=== PATIENT | female | born 1930 | race Caucasian/White ===

== ENCOUNTER 2016-09-13 10:14 | Emergency (ER) | payer OTHER ==
[~2016-09-13] VITALS: Ht 157.5 cm; Wt 81.0 kg
[~2016-09-13 10:14] MED LIST: CALC600T34 PO; LOSA25TA31 PO; METO25CR PO; MEVA40TA6 PO; OMEP20TA39 PO; RANI150UDC PO; WARF2TAB PO
[2016-09-13 10:28] VITALS: BP 138/59; PULSE 65; RESP 16; TEMP 97.6; O2SAT 93
[2016-09-13 10:54] LABS: BLOOD, URINE NEG (NEG); GLUCOSE,URINE NEG (NEG); KETONE, URINE NEG (NEG); NITRITE,URINE NEG (NEG)
--- NOTE | 2016-09-13 10:57 | PD ---
HPI Chief Complaint: Flank/Kidney Pain Time Seen by Provider: 10:33 Travel History International Travel<30 days: No Contact w/Intl Traveler<30days: No Traveled to known affect area: No History of Present Illness HPI This 86-year-old female is complaining of some right lumbar pain. Last night she was complaining of some right lower quadrant pain. She did not have vomiting or diarrhea. Today the pain seems greater in the lumbar area he has not had dysuria. She is not aware of any fever or chills. She does not know history of injury she has had an appendectomy in the past. She has a history of COPD. She also has a history of renal insufficiency and sees a microelectronics technician every 6 months. PFSH Past Medical History Arthritis: Yes (LEFT ANKLE) Autoimmune Disease: No Heart Rhythm Problems: No Cancer: No Cardiovascular Problems: Yes High Cholesterol: Yes Diabetes: No Diminished Hearing: No Endocrine: No GERD: Yes (controlled with medication) Genitourinary: No Hypertension: Yes Immune Disorder: No Implanted Vascular Access Dvce: No Neurologic: No Psychiatric: No Reproductive: No Respiratory: Yes Thyroid Disease: No ?: Not Past Surgical History Abdominal Surgery: Yes (APPENDECTOMY IN 1973) Social History Alcohol Use: No Tobacco Use: No Substance Use: No Allergies-Medications (Allergen,Severity, Reaction): Coded Allergies: Penicillin (Verified Allergy, Severe, 09/13/16) Reported Meds & Prescriptions Reported Meds & Active Scripts Active Reported Gabapentin 300 Mg Cap 300 Mg PO TID Losartan (Losartan Potassium) 50 Mg Tab 50 Mg PO DAILY Atorvastatin (Atorvastatin Calcium) 40 Mg Tab 40 Mg PO HS Calcitriol 0.25 Mcg Cap 0.75 Mcg PO DAILY Hydralazine (Hydralazine HCl) 25 Mg Tab 25 Mg PO TID Take with a meal Metoprolol Tartrate 50 Mg Tab 50 Mg PO DAILY Warfarin 2 Mg Tab 2 Mg PO DAILY Review of Systems General / Constitutional: No: Fever, Chills Eyes: No: Diploplia, Blurred Vision HENT: No: Headaches, Vertigo Cardiovascular: No: Palpitations Respiratory: No: Cough, Shortness of Breath Gastrointestinal: Positive: Abdominal Pain, No: Nausea, Vomiting Genitourinary: No: Frequency, Dysuria Musculoskeletal: No: Myalgias, Arthralgias Skin: No Rash Neurologic: No: Weakness Hematologic/Lymphatic: No: Easy Bruising Physical Exam Narrative GENERAL: Well-developed female SKIN: Warm and dry. HEAD: Atraumatic. Normocephalic. EYES: Pupils equal and round. No scleral icterus. No injection or drainage. ENT: No nasal bleeding or discharge. Mucous membranes pink and moist. NECK: Trachea midline. No JVD. CARDIOVASCULAR: Regular rate and rhythm. No murmur appreciated. RESPIRATORY: No accessory muscle use. Clear to auscultation. Breath sounds equal bilaterally. GASTROINTESTINAL: Abdomen soft, she does have some right lower quadrant tenderness, nondistended. Hepatic and splenic margins not palpable. MUSCULOSKELETAL: No obvious deformities. No clubbing. No cyanosis. No edema. NEUROLOGICAL: Awake and alert. No obvious cranial nerve deficits. Motor grossly within normal limits. Normal speech. PSYCHIATRIC: Appropriate mood and affect; insight and judgment normal. Data Data Last Documented VS Vital Signs Date Time Temp Pulse Resp B/P Pulse Ox O2 Delivery O2 Flow Rate FiO2 09/13/16 10:28 97.6 65 16 138/59 93 Orders Urinalysis - C+S If Indicated (09/13/16 10:36) Complete Blood Count With Diff (09/13/16 10:55) Comprehensive Metabolic Panel (09/13/16 10:55) Urine Culture (09/13/16 10:30) Ct Abd/Pel W/O Iv Contrast (09/13/16 11:51) Labs Laboratory Tests Test 09/13/16 09/13/16 10:30 11:15 Urine Collection Type CLEAN CATCH Urine Color YELLOW Urine Turbidity CLEAR Urine pH 5.0 Urine Specific [place] 1.022 Urine Protein NEG mg/dL Urine Glucose (UA) NEG mg/dL Urine Ketones NEG mg/dL Urine Occult Blood NEG Urine Nitrite NEG Urine Bilirubin NEG Urine Leukocyte Esterase NEG Urine WBC 0-2 /hpf Urine Squamous Epithelial > 8 /hpf Cells Urine Bacteria MOD /hpf Microscopic Urinalysis Comment CULTURE INDICATED Urine Collection Time 10:30 White Blood Count 8.1 TH/MM3 Red Blood Count 4.48 MIL/MM3 Hemoglobin 13.6 GM/DL Hematocrit 41.1 % Mean Corpuscular Volume 91.7 FL Mean Corpuscular Hemoglobin 30.2 PG Mean Corpuscular Hemoglobin 33.0 % Concent Red Cell Distribution Width 14.6 % Platelet Count 257 TH/MM3 Mean Platelet Volume 7.2 FL Neutrophils (%) (Auto) 81.9 % Lymphocytes (%) (Auto) 14.2 % Monocytes (%) (Auto) 2.4 % Eosinophils (%) (Auto) 0.9 % Basophils (%) (Auto) 0.6 % Neutrophils # (Auto) 6.7 TH/MM3 Lymphocytes # (Auto) 1.1 TH/MM3 Monocytes # (Auto) 0.2 TH/MM3 Eosinophils # (Auto) 0.1 TH/MM3 Basophils # (Auto) 0.0 TH/MM3 CBC Comment DIFF FINAL Differential Comment Sodium Level 146 MEQ/L Potassium Level 4.0 MEQ/L Chloride Level 110 MEQ/L Carbon Dioxide Level 26.1 MEQ/L Anion Gap 10 MEQ/L Blood Urea Nitrogen 31 MG/DL Creatinine 1.70 MG/DL Estimat Glomerular Filtration 29 ML/MIN Rate Random Glucose 113 MG/DL Calcium Level 9.3 MG/DL Total Bilirubin 0.5 MG/DL Aspartate Amino Transf 18 U/L (AST/SGOT) Alanine Aminotransferase 28 U/L (ALT/SGPT) Alkaline Phosphatase 67 U/L Total Protein 6.8 GM/DL Albumin 3.3 GM/DL [facility] Medical Decision Making Medical Screen Exam Complete: Yes Emergency Medical Condition: Yes Medical Record Reviewed: Yes Differential Diagnosis Differential includes UTI, renal colic, diverticulitis, musculoskeletal pain Narrative Course Her creatinine is come back at 1.7 and she does see a microelectronics technician for renal insufficiency so I ordered a CT scan without contrast to assess for possible intra-abdominal etiology of the pain. Her white count is normal. Urine shows some bacteria but no white cells Houston Trejo MD Sep 13, 2016 10:57
[2016-09-13 11:00] LABS: METHOD OF COLLECTION CLEAN CATCH; URINE COLOR YELLOW (YELLW/STRAW); WBC, URINE 0-2 /hpf (0-5)
[2016-09-13 11:01] LABS: BACTERIA, URINE MOD /hpf; COMMENT (UR) CULTURE INDICATED; CULTURE IF INDICATED CULTURE INDICATED; SQUAMOUS EPITHELIAL CELL URINE > 8 /hpf (0-5)
[2016-09-13] MEDS ORDERED: HYDR25TA35 PO (11:02)
[2016-09-13] MEDS ORDERED: GABA300C5 PO (11:02)
[2016-09-13] MEDS ORDERED: ATOR40TA16 PO (11:02)
[2016-09-13] MEDS ORDERED: LOSA50TA PO (11:02)
[2016-09-13] MEDS ORDERED: CALC0.25 PO (11:02)
[2016-09-13] MEDS ORDERED: WARF4TAB51 PO (11:02)
[2016-09-13] MEDS ORDERED: METO50TA PO (11:02)
[2016-09-13 11:22] LABS: AUTOMATED NEUTROPHIL # 6.7 TH/MM3 (1.8-7.7); BASOPHIL % 0.6 % (0.0-2.0); EOSINOPHIL # 0.1 TH/MM3 (0-0.4); EOSINOPHIL % 0.9 % (0.0-4.0); HEMATOCRIT 41.1 % (35.0-46.0); LYMPH % 14.2 % (9.0-44.0); LYMPHOCYTE # 1.1 TH/MM3 (1.0-4.8); MEAN CELL VOLUME 91.7 FL (80.0-100.0); MEAN CORPUSCULAR HEMOGLOBIN 30.2 PG (27.0-34.0); MONO % 2.4 % (0.0-8.0); NEUT % 81.9 % (16.0-70.0); PLATELET COUNT 257 TH/MM3 (150-450); RED BLOOD COUNT 4.48 MIL/MM3 (4.00-5.30); RED CELL DISTRIBUTION WIDTH 14.6 % (11.6-17.2); WHITE BLOOD COUNT 8.1 TH/MM3 (4.0-11.0)
[2016-09-13 11:23] LABS: HEMO FLAGS DIFF FINAL
[2016-09-13 11:37] LABS: CHLORIDE 110 MEQ/L (98-107); SODIUM (NA) 146 MEQ/L (136-145)
[2016-09-13 11:41] LABS: ANION GAP 10 MEQ/L (5-15); BICARBONATE 26.1 MEQ/L (21.0-32.0); BLOOD UREA NITROGEN 31 MG/DL (7-18)
[2016-09-13 11:44] LABS: ALT (GPT) 28 U/L (10-53); AST (GOT) 18 U/L (15-37); GLOMERULAR FILTRATION RATE 29 ML/MIN (>89)
[2016-09-13 11:45] LABS: TOTAL BILIRUBIN ADULT 0.5 MG/DL (0.2-1.0)
[2016-09-13 11:46] LABS: ALKALINE PHOSPHATASE 67 U/L (45-117)
--- NOTE | 2016-09-13 13:11 | RADHPO ---
EXAM DATE/TIME: 09/13/2016 12:31 [place] COMPARISON: CT BRAIN W/O CONTRAST, June 14, 2014, 15:08. INDICATIONS : Right sided abdominal pain. ORAL CONTRAST: No oral contrast ingested. RADIATION DOSE: 18.85 CTDIvol (mGy) MEDICAL HISTORY : Chronic obstructive pulmonary disease. Gastroesophageal reflux disease. Hypertension. SURGICAL HISTORY : Appendectomy. ENCOUNTER: Initial ACUITY: 2 days PAIN SCALE: 3/10 LOCATION: Right abdomen TECHNIQUE: Volumetric scanning of the abdomen and pelvis was performed. Using automated exposure control and ad justment of the mA and/or kV according to patient size, radiation dose was kept as low as reasonably achievable to obtain optimal diagnostic quality images. FINDINGS: Imaging through the lung bases demonstrate COPD changes. The heart is mildly enlarged. Examination of the liver demonstrates a 1.0 x 1.5 cm low-attenuation lesion within the dome of the li theo. This is nonspecific in appearance by CT. The spleen, pancreas, adrenal glands and kidneys are in tact. There is no free intraperitoneal air. No free intraperitoneal fluid is evident. There is diffuse athe rosclerotic plaquing within the abdominal aorta. No retroperitoneal adenopathy is seen. The visualized loops of small and large bowel demonstrate some scattered diverticuli throughout the c olon. No inflammatory changes are seen. There is no free fluid within the pelvis. No iliac or inguinal adenopathy is seen. The visualized osseous structures demonstrate degenerative changes but are otherwise intact. The visualized osseous structures demonstrate advanced degenerative changes throughout the spine but are otherwise intact. CONCLUSION: 1. COPD changes within the lung bases. 2. 1.0 x 1.6 cm low-attenuation lesion in the liver probably representing a cyst or hemangioma but no nspecific in appearance. 3. Scattered diverticuli throughout the colon. No inflammatory changes are seen. 4. No definite abnormality to explain the patient's right lower quadrant pain identified. 5. Incidental lipoma in the right inguinal region. Keanu Kim MD on September 13, 2016 at 13:06 Board Certified Radiologist. This report was verified electronically.
== END 2016-09-13 13:54 | disposition home or self-care (01) ==
LOC: PHED 10:14
DX: N28.9 Disorder of kidney and ureter, unspecified (principal); I12.9 Hypertensive chronic kidney disease with stage 1 through stage 4 chronic kidney disease, or unspecified chronic kidney disease; E78.00 Pure hypercholesterolemia, unspecified
CPT/HCPCS: 74176; 80053; 81001; 85025; 87086

== ENCOUNTER → 2017-12-15 | Outpatient (CLI) | payer OTHER ==
[~2017-12-15] MED LIST changes: +ATOR40TA16 PO; +CALC0.25 PO; -CALC600T34 PO; +GABA300C5 PO; +HYDR25TA35 PO; -LOSA25TA31 PO; +LOSA50TA PO; -METO25CR PO; +METO50TA PO; -MEVA40TA6 PO; -OMEP20TA39 PO; -RANI150UDC PO; -WARF2TAB PO; +WARF4TAB51 PO
== END ==
LOC: PHRSP 07:28
PROVIDERS: ATTEND Internal Medicine
DX: R06.02 Shortness of breath (principal)
CPT/HCPCS: 94060; 94618; 94726; 94729